=== PATIENT | male | born 1940 | race Two or more races ===

== ENCOUNTER 2024-03-12 19:51 | Inpatient (IN) | payer MEDICARE, BC, OTHER ==
[~2024-03-12] VITALS: Ht 175.3 cm; Wt 69.9 kg
[2024-03-12 20:38] LABS: BASOPHILS % (AUTO) 0.3 % (0.0-2.0); EOSINOPHILS # (AUTO) 0.1 K/uL (0.0-0.7); EOSINOPHILS % (AUTO) 1.1 % (0.0-6.0); HEMATOCRIT 37 % (39-51); HEMOGLOBIN 11.8 g/dL (13.5-17.5); LYMPHOCYTES # (AUTO) 0.7 K/uL (0.8-4.8); LYMPHOCYTES % (AUTO) 5.8 % (20.0-44.0); MEAN CORPUSCULAR HEMOGLOBIN 25 PG (26.0-33.0); MEAN CORPUSCULAR HGB CONC 32 g/dl (31.0-36.0); MEAN CORPUSCULAR VOLUME 79 fL (80-96); MONOCYTES # (AUTO) 1.1 K/uL (0.1-1.30); NEUTROPHILS # (AUTO) 10.3 K/uL (1.8-8.9); NEUTROPHILS % (AUTO) 83.8 % (43.0-81.0); PLATELET COUNT (AUTO) 232 K/uL (150-450); RED BLOOD CELL COUNT(AUTO) 4.63 MIL/uL (4.5-6.0); RED CELL DISTRIBUTION WIDTH 18.1 % (11.5-15.0); WHITE BLOOD COUNT (AUTO) 12.3 K/uL (4.3-11.0)
[2024-03-12 20:57] LABS: CALCIUM, SERUM 8.8 mg/dL (8.5-10.1); CARBON DIOXIDE 29 mmol/L (21-32); CHLORIDE 99 mmol/L (98-107); CREATININE 0.8 mg/dL (0.6-1.3); GLUCOSE 120 mg/dL (74-106); POTASSIUM 4.4 mmol/L (3.5-5.1); SODIUM SERUM 135 mmol/L (136-145); UREA NITROGEN, BLOOD 24 mg/dL (7-18)
[2024-03-12 20:59] LABS: SERUM AMMONIA 13 umol/L (11-32)
[2024-03-12 21:02] LABS: ALANINE AMINOTRANSFERASE 17 U/L (12-78); ALBUMIN 2.7 g/dL (3.4-5.0); ALKALINE PHOSPHATASE 159 U/L (46-116); ASPARTATE AMINOTRANSFERASE 18 U/L (15-37); BILIRUBIN,DIRECT 0.1 mg/dL (0.0-0.2); BILIRUBIN,TOTAL 0.4 mg/dL (0.2-1.0); TOTAL PROTEIN, SERUM 6.6 g/dL (6.4-8.2)
[2024-03-12 21:04] LABS: ALCOHOL, BLOOD < 3 mg/dL (0-10)
[2024-03-12 21:26] LABS: APPEARANCE,URINE CLEAR (CLEAR); BILIRUBIN,URINE NEGATIVE (NEGATIVE); BLOOD, URINE NEGATIVE Ery/uL (NEGATIVE); COLOR,URINE YELLOW (YELLOW); KETONES,URINE NEGATIVE (NEGATIVE); LEUKOCYTE ESTERASE ,URINE NEGATIVE (NEGATIVE); NITRITE, URINE NEGATIVE (NEGATIVE); PROTEIN,URINE NEGATIVE (NEGATIVE); UGLUCOSE NEGATIVE (NEGATIVE); UROBILINOGEN,URINE 0.2 EU/dL (0.2)
[2024-03-12 21:58] LABS: INR 1.64 (0.91-1.10); PARTIAL THROMBOPLASTIN TIME 40.7 SEC (24.3-34.3); PROTHROMBIN TIME 16.8 SECS (9.2-11.1)
[2024-03-12] MEDS ORDERED: LORAZEPAM INJ 2 MG/ML VIAL ONE (22:10)
[2024-03-12] MEDS: LORAZEPAM INJ 2 MG/ML VIAL IV PRN (22:17)
[2024-03-12] MEDS ORDERED: MAGNESIUM HYDROXIDE 30 ML UDC PO PRN (23:00)
[2024-03-12] MEDS ORDERED: ONDANSETRON HCL/PF 4 MG/2 ML VIAL IVP PRN (23:00)
[2024-03-12] MEDS ORDERED: MAG HYDROX/AL HYDROX/SIMETH 30 ML UDC PO PRN (23:00)
[2024-03-12] MEDS ORDERED: Z GUARD REMEDY 4 OZ OINT TP PRN (23:00)
[2024-03-12] MEDS ORDERED: ACETAMINOPHEN 325 MG TABLET PO PRN (23:00)
[2024-03-13 07:00] VITALS: BP 156/98; TEMP 98.3; O2SAT 99
[2024-03-13 07:15] LABS: BASOPHILS % (AUTO) 0.4 % (0.0-2.0); EOSINOPHILS # (AUTO) 0.4 K/uL (0.0-0.7); EOSINOPHILS % (AUTO) 3.2 % (0.0-6.0); HEMATOCRIT 33 % (39-51); HEMOGLOBIN 10.6 g/dL (13.5-17.5); LYMPHOCYTES % (AUTO) 8.4 % (20.0-44.0); MEAN CORPUSCULAR HEMOGLOBIN 25 PG (26.0-33.0); MEAN CORPUSCULAR HGB CONC 32 g/dl (31.0-36.0); MEAN CORPUSCULAR VOLUME 79 fL (80-96); MONOCYTES # (AUTO) 1.1 K/uL (0.1-1.30); NEUTROPHILS # (AUTO) 9.2 K/uL (1.8-8.9); PLATELET COUNT (AUTO) 172 K/uL (150-450); RED CELL DISTRIBUTION WIDTH 18.4 % (11.5-15.0); WHITE BLOOD COUNT (AUTO) 11.7 K/uL (4.3-11.0)
[2024-03-13 07:41] LABS: CALCIUM, SERUM 8.3 mg/dL (8.5-10.1); CARBON DIOXIDE 25 mmol/L (21-32); CHLORIDE 102 mmol/L (98-107); CREATININE 0.6 mg/dL (0.6-1.3); GLUCOSE 87 mg/dL (74-106); POTASSIUM 3.6 mmol/L (3.5-5.1); SODIUM SERUM 137 mmol/L (136-145); UREA NITROGEN, BLOOD 21 mg/dL (7-18)
[2024-03-13 08:00] VITALS: BP 159/49; TEMP 98.4; O2SAT 96
[2024-03-13] MEDS ORDERED: ATOR20TA PO (08:26)
[2024-03-13] MEDS ORDERED: TRAV2.5D7 EACHEYE (08:26)
[2024-03-13] MEDS ORDERED: NA P133E RC (08:26)
[2024-03-13] MEDS ORDERED: CHOL200059 PO (08:26)
[2024-03-13] MEDS ORDERED: LOSA25TA27 PO (08:26)
[2024-03-13] MEDS ORDERED: RIVA10TA PO (08:26)
[2024-03-13] MEDS ORDERED: ASCO-352 PO (08:26)
[2024-03-13] MEDS ORDERED: BISA10SU11 RC (08:26)
[2024-03-13] MEDS ORDERED: AMIN30LI25 PO (08:26)
[2024-03-13] MEDS ORDERED: CRAN300T PO (08:26)
[2024-03-13] MEDS ORDERED: ALBU18HF2 IH (08:26)
[2024-03-13] MEDS ORDERED: CARB200T8 PO (08:26)
[2024-03-13] MEDS ORDERED: SENN8.6T19 PO (08:26)
[2024-03-13] MEDS ORDERED: DORZ10DR10 EACHEYE (08:26)
[2024-03-13] MEDS ORDERED: LEVE500S9 PO (08:26)
[2024-03-13] MEDS ORDERED: LACO100T2 PO (08:26)
[2024-03-13] MEDS ORDERED: DOCU100C36 PO (08:26)
[2024-03-13] MEDS ORDERED: ACET325T53 PO (08:26)
[2024-03-13] MEDS ORDERED: BRIM5DRO11 EACHEYE (08:26)
[2024-03-13] MEDS ORDERED: MULT-1275 PO (08:26)
[2024-03-13] MEDS ORDERED: HYDR-3973 PO (08:26)
[2024-03-13] MEDS ORDERED: MAGN400O6 PO (08:26)
[2024-03-13] MEDS ORDERED: CALC-1276 PO (08:26)
[2024-03-13] MEDS: PANTOPRAZOLE 40 MG VIAL IV SCH (08:31)
[2024-03-13 11:30] VITALS: BP 168/81; TEMP 97.5; O2SAT 98
[2024-03-13 16:00] VITALS: BP_SYST 156; BP_SYST 157; BP_DIAS 73; BP_DIAS 76; TEMP 98.2; TEMP 98.4; O2SAT 100; O2SAT 94
[2024-03-13] MEDS ORDERED: HYDROCODONE/APAP 5/325MG TABLET PO PRN (17:00)
[2024-03-13] MEDS ORDERED: BISACODYL SUPP (10 MG) 10 MG/SUPP.RECT SUPP.RECT RC PRN (17:00)
[2024-03-13] MEDS ORDERED: NA PHOS,M-B/NA PHOS,DI-BA 1 EA ENEMA RC PRN (17:00)
[2024-03-13] MEDS ORDERED: ACETAMINOPHEN 325 MG TABLET PO PRN (17:00)
[2024-03-13] MEDS: DORZOLAMIDE OPTH 2% 10 ML BOTTLE EACHEYE SCH (17:00)
[2024-03-13] MEDS: BRIMONIDINE TARTRATE OPHT SOLN 5 ML BOTTLE EACHEYE SCH (17:02)
[2024-03-13] MEDS ORDERED: ALBUTEROL FS 2.5 MG/0.5 ML VIAL.NEB NEB PRN (17:30)
[2024-03-13] MEDS ORDERED: Medication Not On Formulary EA (Cranberry Extract (Cranberry) 450 MG) PO SCH (18:00)
[2024-03-13] MEDS: PROSOURCE / PROSTAT (PYXIS) 30 ML UDC PO SCH (18:00)
[2024-03-13] MEDS: CARBAMAZEPINE 200 MG TABLET PO SCH (18:07)
[2024-03-13] MEDS: ASCORBIC ACID 500 MG TABLET PO SCH (18:07)
[2024-03-13] MEDS: CALCIUM CARB 250MG /VITAMIN D 1 UDTAB PO SCH (18:08)
[2024-03-13] MEDS: RIVAROXABAN 10 MG TABLET PO SCH (18:09)
[2024-03-13 20:00] VITALS: BP 159/94; TEMP 98.4; O2SAT 96
[2024-03-13] MEDS: SENNOSIDES 8.6 MG TABLET PO SCH (21:05)
[2024-03-13] MEDS: LACOSAMIDE 50 MG TABLET PO SCH (21:05)
[2024-03-13] MEDS: LATANOPROST EYE DROP 0.005% 2.5 ML BOTTLE EACHEYE SCH (21:05)
[2024-03-13] MEDS: LEVETIRACETAM SOL (5 ML) 100 MG/ML UDC PO SCH (21:05)
[2024-03-13] MEDS: ATORVASTATIN 10 MG TABLET PO SCH (21:05)
[2024-03-14] VITALS (7 sets, daily range): BP systolic 116–177; BP diastolic 78–99; TEMP 97.7–98.4; O2SAT 95–99
[2024-03-14 06:50] LABS: BASOPHILS % (AUTO) 0.6 % (0.0-2.0); EOSINOPHILS # (AUTO) 0.5 K/uL (0.0-0.7); EOSINOPHILS % (AUTO) 7.8 % (0.0-6.0); HEMATOCRIT 35 % (39-51); HEMOGLOBIN 11.5 g/dL (13.5-17.5); LYMPHOCYTES # (AUTO) 0.9 K/uL (0.8-4.8); LYMPHOCYTES % (AUTO) 14.2 % (20.0-44.0); MEAN CORPUSCULAR HEMOGLOBIN 25 PG (26.0-33.0); MEAN CORPUSCULAR HGB CONC 32 g/dl (31.0-36.0); MEAN CORPUSCULAR VOLUME 79 fL (80-96); MONOCYTES # (AUTO) 0.8 K/uL (0.1-1.30); MONOCYTES % (AUTO) 11.7 % (2.0-12.0); NEUTROPHILS # (AUTO) 4.4 K/uL (1.8-8.9); NEUTROPHILS % (AUTO) 65.7 % (43.0-81.0); PLATELET COUNT (AUTO) 201 K/uL (150-450); RED BLOOD CELL COUNT(AUTO) 4.51 MIL/uL (4.5-6.0); RED CELL DISTRIBUTION WIDTH 18.2 % (11.5-15.0); WHITE BLOOD COUNT (AUTO) 6.7 K/uL (4.3-11.0)
[2024-03-14 07:07] LABS: CARBON DIOXIDE 31 mmol/L (21-32); CHLORIDE 100 mmol/L (98-107); CREATININE 0.6 mg/dL (0.6-1.3); GLUCOSE 78 mg/dL (74-106); POTASSIUM 3.8 mmol/L (3.5-5.1); SODIUM SERUM 135 mmol/L (136-145); UREA NITROGEN, BLOOD 13 mg/dL (7-18)
[2024-03-14] MEDS: DOCUSATE SODIUM 100 MG CAPSULE PO SCH (08:30)
[2024-03-14] MEDS: MULTIVITAMINS,THERAGRAN 1 UDTAB TABLET PO SCH (08:30)
[2024-03-14] MEDS: CHOLECALCIFEROL 1,000 UNIT TABLET (VIT D3) PO SCH (08:30)
[2024-03-14] MEDS: PANTOPRAZOLE 40 MG TABLET.DR PO SCH (08:31)
[2024-03-14] MEDS: LOSARTAN POTASSIUM 25 MG TABLET PO SCH (08:31)
[2024-03-14] MEDS: ZOLPIDEM TARTRATE 5 MG TABLET PO PRN (21:22)
[2024-03-15] VITALS: BP 160/94; TEMP 97.7; O2SAT 96
[2024-03-15 04:00] VITALS: BP 174/82; TEMP 98.4; O2SAT 95
[2024-03-15] MEDS: CLONIDINE HCL 0.1 MG TABLET PO PRN (04:26)
[2024-03-15 07:10] LABS: BASOPHILS % (AUTO) 0.6 % (0.0-2.0); EOSINOPHILS # (AUTO) 0.5 K/uL (0.0-0.7); EOSINOPHILS % (AUTO) 7.1 % (0.0-6.0); HEMATOCRIT 34 % (39-51); HEMOGLOBIN 10.7 g/dL (13.5-17.5); LYMPHOCYTES # (AUTO) 0.9 K/uL (0.8-4.8); LYMPHOCYTES % (AUTO) 12.5 % (20.0-44.0); MEAN CORPUSCULAR HEMOGLOBIN 25 PG (26.0-33.0); MEAN CORPUSCULAR HGB CONC 32 g/dl (31.0-36.0); MEAN CORPUSCULAR VOLUME 78 fL (80-96); MONOCYTES # (AUTO) 0.8 K/uL (0.1-1.30); MONOCYTES % (AUTO) 10.5 % (2.0-12.0); NEUTROPHILS % (AUTO) 69.3 % (43.0-81.0); PLATELET COUNT (AUTO) 196 K/uL (150-450); RED BLOOD CELL COUNT(AUTO) 4.29 MIL/uL (4.5-6.0); RED CELL DISTRIBUTION WIDTH 17.3 % (11.5-15.0); WHITE BLOOD COUNT (AUTO) 7.2 K/uL (4.3-11.0)
[2024-03-15 07:24] LABS: CALCIUM, SERUM 8.1 mg/dL (8.5-10.1); CARBON DIOXIDE 32 mmol/L (21-32); CHLORIDE 100 mmol/L (98-107); CREATININE 0.5 mg/dL (0.6-1.3); GLUCOSE 88 mg/dL (74-106); POTASSIUM 3.7 mmol/L (3.5-5.1); SODIUM SERUM 136 mmol/L (136-145); UREA NITROGEN, BLOOD 15 mg/dL (7-18)
[2024-03-15 08:00] VITALS: BP 176/74; TEMP 97.6; O2SAT 98
[2024-03-15] MEDS ORDERED: LISI-768 PO (09:35)
[2024-03-15 09:55] LABS: MAGNESIUM 1.9 mg/dL (1.8-2.4); PHOSPHORUS 3.3 mg/dL (2.5-4.9)
[2024-03-15 17:26] VITALS: BP 172/90; TEMP 98.9; O2SAT 97
[2024-03-15 18:00] VITALS: BP 166/90; TEMP 98; O2SAT 96
== END 2024-03-15 18:25 | disposition home or self-care (01) | DRG 640 ==
LOC: ER 19:55 → MED 21:37 → TELE 23:49
PROVIDERS: ATTEND Nurse Practitioner Acute Care
DX: R62.7 Adult failure to thrive (principal); E43 Unspecified severe protein-calorie malnutrition; G93.41 Metabolic encephalopathy; F03.93 Unspecified dementia, unspecified severity, with mood disturbance; F03.92 Unspecified dementia, unspecified severity, with psychotic disturbance; E86.0 Dehydration; I48.91 Unspecified atrial fibrillation; G40.909 Epilepsy, unspecified, not intractable, without status epilepticus; Z66 Do not resuscitate; F32.9 Major depressive disorder, single episode, unspecified; F29 Unspecified psychosis not due to a substance or known physiological condition; Z85.828 Personal history of other malignant neoplasm of skin; Z88.0 Allergy status to penicillin; Z88.8 Allergy status to other drugs, medicaments and biological substances; Z79.01 Long term (current) use of anticoagulants; Z79.51 Long term (current) use of inhaled steroids; Z79.899 Other long term (current) drug therapy; E78.5 Hyperlipidemia, unspecified; E88.09 Other disorders of plasma-protein metabolism, not elsewhere classified; D72.829 Elevated white blood cell count, unspecified; I71.20 Thoracic aortic aneurysm, without rupture, unspecified; Z91.81 History of falling; Z95.0 Presence of cardiac pacemaker; I10 Essential (primary) hypertension; D64.9 Anemia, unspecified; R79.89 Other specified abnormal findings of blood chemistry
CPT/HCPCS: 36415; 70450-TC; 71045-TC; 80048-TC; 80076-TC; 82140-TC; 83735-TC; 84100-TC; 84443-TC; 84484-TC; 85025-TC; 85730-TC; 87081-TC; 97110-TC; 97112-TC; 97116-TC; 97530-TC; G0378; G0480; J1953; J2060; J2470

== ENCOUNTER 2024-08-12 18:26 | Inpatient (IN) | payer MEDICARE, BC, OTHER ==
[~2024-08-12] VITALS: Ht 162.6 cm; Wt 66.2 kg
[~2024-08-12 18:26] MED LIST: ACET325T53 PO; ALBU18HF2 IH; AMIN30LI25 PO; ASCO-352 PO; ATOR20TA PO; BISA10SU11 RC; BRIM5DRO11 EACHEYE; CALC-1276 PO; CARB200T8 PO; CHOL200059 PO; CRAN300T PO; DOCU100C36 PO; DORZ10DR10 EACHEYE; HYDR-3973 PO; LACO100T2 PO; LEVE500S9 PO; LISI-768 PO; LOSA25TA27 PO; MAGN400O6 PO; MULT-1275 PO; NA P133E RC; RIVA10TA PO; SENN8.6T19 PO; TRAV2.5D7 EACHEYE
[2024-08-12 18:48] LABS: BASOPHILS % (AUTO) 0.2 % (0.0-2.0); HEMATOCRIT 31 % (39-51); LYMPHOCYTES # (AUTO) 0.4 K/uL (0.8-4.8); MEAN CORPUSCULAR HEMOGLOBIN 26 PG (26.0-33.0); MEAN CORPUSCULAR HGB CONC 32 g/dl (31.0-36.0); MEAN CORPUSCULAR VOLUME 79 fL (80-96); MONOCYTES # (AUTO) 0.9 K/uL (0.1-1.30); MONOCYTES % (AUTO) 6.2 % (2.0-12.0); NEUTROPHILS # (AUTO) 13.2 K/uL (1.8-8.9); NEUTROPHILS % (AUTO) 90.6 % (43.0-81.0); PLATELET COUNT (AUTO) 199 K/uL (150-450); RED BLOOD CELL COUNT(AUTO) 3.88 MIL/uL (4.5-6.0); WHITE BLOOD COUNT (AUTO) 14.5 K/uL (4.3-11.0)
[2024-08-12] MEDS: CEFEPIME 1 GM in IV D5W 50 ML IV ONE (18:55)
[2024-08-12] MEDS: IV NS 0.9% 1,000 ML BAG IV ONE (18:55)
[2024-08-12 18:56] LABS: APPEARANCE,URINE CLEAR (CLEAR); BILIRUBIN,URINE NEGATIVE (NEGATIVE); BLOOD, URINE 2+ Ery/uL (NEGATIVE); COLOR,URINE YELLOW (YELLOW); KETONES,URINE 1+ mg/dL (NEGATIVE); LEUKOCYTE ESTERASE ,URINE 1+ (NEGATIVE); NITRITE, URINE POSITIVE (NEGATIVE); PROTEIN,URINE 1+ mg/dl (NEGATIVE); UGLUCOSE NEGATIVE (NEGATIVE); UROBILINOGEN,URINE 0.2 EU/dL (0.2)
[2024-08-12 18:58] LABS: CALCIUM, SERUM 8.6 mg/dL (8.5-10.1); CARBON DIOXIDE 27 mmol/L (21-32); CHLORIDE 107 mmol/L (98-107); CREATININE 0.8 mg/dL (0.6-1.3); GLUCOSE 107 mg/dL (74-106); POTASSIUM 3.6 mmol/L (3.5-5.1); SODIUM SERUM 141 mmol/L (136-145); UREA NITROGEN, BLOOD 31 mg/dL (7-18)
[2024-08-12] MEDS: VANCOMYCIN 1 GM in IV D5W 250 ML IV ONE (19:00)
[2024-08-12 19:01] LABS: INR 1.43 (0.91-1.10); PARTIAL THROMBOPLASTIN TIME 38.5 SEC (24.3-34.3); PROTHROMBIN TIME 14.8 SECS (9.2-11.1)
[2024-08-12 19:04] LABS: ALANINE AMINOTRANSFERASE 20 U/L (12-78); ALBUMIN 2.6 g/dL (3.4-5.0); ALKALINE PHOSPHATASE 104 U/L (46-116); ASPARTATE AMINOTRANSFERASE 22 U/L (15-37); BILIRUBIN,DIRECT 0.3 mg/dL (0.0-0.2); BILIRUBIN,TOTAL 0.6 mg/dL (0.2-1.0); TOTAL PROTEIN, SERUM 6.9 g/dL (6.4-8.2)
[2024-08-12 19:05] LABS: LACTIC ACID 1.2 mmol/L (0.4-2.0)
[2024-08-12 19:17] LABS: ADD URINE CULTURE YES; BACTERIA,URINE Many /HPF (None Seen); RBC,URINE 21-50 /HPF (0-2)
[2024-08-12] MEDS ORDERED: ACETAMINOPHEN 650 MG/SUPP.RECT RC ONE (19:26)
[2024-08-12] MEDS: ACETAMINOPHEN 650 MG/SUPP.RECT RC ONE (19:30)
[2024-08-12] MEDS ORDERED: ONDANSETRON HCL/PF 4 MG/2 ML VIAL IVP PRN (21:00)
[2024-08-12] MEDS ORDERED: MAGNESIUM HYDROXIDE 30 ML UDC PO PRN ×2 (21:00)
[2024-08-12] MEDS ORDERED: Z GUARD REMEDY 4 OZ OINT TP PRN (21:00)
[2024-08-12] MEDS ORDERED: BISACODYL SUPP (10 MG) 10 MG/SUPP.RECT SUPP.RECT RC PRN (21:00)
[2024-08-12] MEDS ORDERED: MAG HYDROX/AL HYDROX/SIMETH 30 ML UDC PO PRN (21:00)
[2024-08-12] MEDS ORDERED: HYDROCODONE/APAP 5/325MG TABLET PO PRN (21:00)
[2024-08-12] MEDS ORDERED: NA PHOS,M-B/NA PHOS,DI-BA 1 EA ENEMA RC PRN (21:00)
[2024-08-12] MEDS ORDERED: Potassium Chloride 20 MEQ in IV D5/0.45 NACL 1,000 ML IV SCH (21:30)
[2024-08-12] MEDS ORDERED: SENNOSIDES 8.6 MG TABLET PO SCH (22:00)
[2024-08-12] MEDS ORDERED: Medication Not On Formulary EA (Atorvastatin Calcium (Lipitor) 20 MG) PO SCH (22:00)
[2024-08-13] VITALS: BP 142/92; TEMP 98.1; O2SAT 98
[2024-08-13] MEDS: ENOXAPARIN SODIUM 40 MG/0.4 ML DISP.SYRIN SQ SCH (00:02)
[2024-08-13] MEDS: IV D5/0.45 NACL 1,000 ML IV ONE (00:45)
[2024-08-13 04:00] VITALS: BP 138/87; TEMP 98.4; O2SAT 97
[2024-08-13 06:30] LABS: BASOPHILS % (AUTO) 0.2 % (0.0-2.0); HEMATOCRIT 29 % (39-51); HEMOGLOBIN 9.1 g/dL (13.5-17.5); LYMPHOCYTES # (AUTO) 1.1 K/uL (0.8-4.8); LYMPHOCYTES % (AUTO) 7.7 % (20.0-44.0); MEAN CORPUSCULAR HEMOGLOBIN 26 PG (26.0-33.0); MEAN CORPUSCULAR HGB CONC 32 g/dl (31.0-36.0); MEAN CORPUSCULAR VOLUME 80 fL (80-96); MONOCYTES # (AUTO) 1.4 K/uL (0.1-1.30); NEUTROPHILS # (AUTO) 11.6 K/uL (1.8-8.9); NEUTROPHILS % (AUTO) 82.1 % (43.0-81.0); PLATELET COUNT (AUTO) 162 K/uL (150-450); RED BLOOD CELL COUNT(AUTO) 3.57 MIL/uL (4.5-6.0); RED CELL DISTRIBUTION WIDTH 18.7 % (11.5-15.0); WHITE BLOOD COUNT (AUTO) 14.1 K/uL (4.3-11.0)
[2024-08-13 06:37] LABS: CREATININE 0.6 mg/dL (0.6-1.3); MAGNESIUM 1.8 mg/dL (1.8-2.4); POTASSIUM 3.3 mmol/L (3.5-5.1)
[2024-08-13 08:00] VITALS: BP 138/76; TEMP 98.4; O2SAT 97
[2024-08-13] MEDS: Potassium Chloride 20 MEQ in IV D5/0.45 NACL 1,000 ML IV SCH (08:32)
[2024-08-13] MEDS: VANCOMYCIN 750 MG in IV D5W 250 ML IV SCH (08:33)
[2024-08-13] MEDS: PANTOPRAZOLE 40 MG VIAL IV SCH (08:34)
[2024-08-13] MEDS ORDERED: Medication Not On Formulary EA (Multivitamin 1 TAB) PO SCH (09:00)
[2024-08-13] MEDS ORDERED: Medication Not On Formulary EA (Lacosamide (Vimpat) 100 MG) PO SCH (09:00)
[2024-08-13] MEDS ORDERED: LOSARTAN POTASSIUM 25 MG TABLET PO SCH (09:00)
[2024-08-13] MEDS ORDERED: LISINOPRIL (5MG) 5 MG TABLET PO SCH (09:00)
[2024-08-13] MEDS ORDERED: CARBAMAZEPINE 200 MG TABLET PO SCH (09:00)
[2024-08-13] MEDS ORDERED: CEFEPIME 1 GM in IV D5W 50 ML IV SCH (09:00)
[2024-08-13] MEDS ORDERED: LEVETIRACETAM PO SCH (09:00)
[2024-08-13] MEDS ORDERED: DORZOLAMIDE OPTH 2% 10 ML BOTTLE EACHEYE SCH (09:00)
[2024-08-13] MEDS ORDERED: DOCUSATE SODIUM 100 MG CAPSULE PO SCH (09:00)
[2024-08-13] MEDS ORDERED: SENN-291 PO (09:42)
[2024-08-13] MEDS ORDERED: CALC-261 PO (09:42)
[2024-08-13] MEDS ORDERED: ASCO500T10 PO (09:42)
[2024-08-13] MEDS ORDERED: ALBU6.7H9 IH (09:42)
[2024-08-13] MEDS ORDERED: DORZ10DR18 EACHEYE (09:42)
[2024-08-13] MEDS ORDERED: ACET650S11 RC (09:42)
[2024-08-13] MEDS ORDERED: ZOLP5TAB8 PO (09:42)
[2024-08-13] MEDS ORDERED: CARB200T8 PO (09:42)
[2024-08-13] MEDS ORDERED: HYDR-4303 PO (09:42)
[2024-08-13] MEDS ORDERED: AMIN30LI66 PO (09:42)
[2024-08-13] MEDS ORDERED: IPRA3AMP23 NEB (09:42)
[2024-08-13] MEDS ORDERED: CRAN425C6 PO (09:42)
[2024-08-13] MEDS ORDERED: OMEP40CA21 PO (09:42)
[2024-08-13] MEDS ORDERED: CLON0.1T PO (09:42)
[2024-08-13] MEDS ORDERED: LEVE750T10 PO (09:42)
[2024-08-13] MEDS ORDERED: MULT-213 PO (09:42)
[2024-08-13] MEDS: CEFEPIME 2 GM in IV D5W 100 ML IV SCH (09:50)
[2024-08-13 12:00] VITALS: BP 129/75; TEMP 98.6; O2SAT 97
[2024-08-13 16:00] VITALS: BP 134/79; TEMP 97.6; O2SAT 97
[2024-08-13] MEDS ORDERED: ASCORBIC ACID 500 MG TABLET PO SCH (18:00)
[2024-08-13] MEDS ORDERED: Medication Not On Formulary EA (Cranberry Extract (Cranberry) 450 MG) PO SCH (18:00)
[2024-08-13] MEDS ORDERED: RIVAROXABAN 10 MG TABLET PO SCH (18:00)
[2024-08-13] MEDS ORDERED: Medication Not On Formulary EA (Amino Acids/Protein Hydrolys (Prosource Liquid) 30 ML) PO SCH (18:00)
[2024-08-13] MEDS ORDERED: [UNRECOGNIZED DRUG - OTHER] PO SCH (18:00)
[2024-08-13] MEDS ORDERED: VITAMIN D3 PO SCH (18:00)
[2024-08-13] MEDS ORDERED: CALCIUM CARBONATE PO SCH (18:00)
[2024-08-13 20:23] VITALS: BP 148/82; TEMP 98.4; O2SAT 97
[2024-08-14 00:07] VITALS: BP 160/87; TEMP 98.3; O2SAT 96
[2024-08-14 04:00] VITALS: BP 139/86; TEMP 97.9; O2SAT 100
[2024-08-14 08:00] VITALS: BP 135/94; TEMP 98.4; O2SAT 100
[2024-08-14 08:07] LABS: BASOPHILS % (AUTO) 0.3 % (0.0-2.0); EOSINOPHILS # (AUTO) 0.1 K/uL (0.0-0.7); EOSINOPHILS % (AUTO) 0.8 % (0.0-6.0); HEMATOCRIT 26 % (39-51); HEMOGLOBIN 8.5 g/dL (13.5-17.5); LYMPHOCYTES # (AUTO) 0.6 K/uL (0.8-4.8); LYMPHOCYTES % (AUTO) 5.4 % (20.0-44.0); MEAN CORPUSCULAR HEMOGLOBIN 26 PG (26.0-33.0); MEAN CORPUSCULAR HGB CONC 33 g/dl (31.0-36.0); MEAN CORPUSCULAR VOLUME 79 fL (80-96); MONOCYTES # (AUTO) 0.9 K/uL (0.1-1.30); MONOCYTES % (AUTO) 7.6 % (2.0-12.0); NEUTROPHILS # (AUTO) 9.8 K/uL (1.8-8.9); NEUTROPHILS % (AUTO) 85.9 % (43.0-81.0); PLATELET COUNT (AUTO) 157 K/uL (150-450); RED BLOOD CELL COUNT(AUTO) 3.31 MIL/uL (4.5-6.0); RED CELL DISTRIBUTION WIDTH 18.9 % (11.5-15.0); WHITE BLOOD COUNT (AUTO) 11.4 K/uL (4.3-11.0)
[2024-08-14 08:55] LABS: ALBUMIN 1.9 g/dL (3.4-5.0); BILIRUBIN,TOTAL 0.5 mg/dL (0.2-1.0); CALCIUM, SERUM 7.8 mg/dL (8.5-10.1); CREATININE 0.5 mg/dL (0.6-1.3); MAGNESIUM 1.8 mg/dL (1.8-2.4); PHOSPHORUS 1.7 mg/dL (2.5-4.9); POTASSIUM 3.1 mmol/L (3.5-5.1); TOTAL PROTEIN, SERUM 5.7 g/dL (6.4-8.2)
[2024-08-14 12:00] VITALS: BP 138/89; TEMP 98.2; O2SAT 100
[2024-08-14 16:00] VITALS: BP 142/74; TEMP 98.4; O2SAT 95
[2024-08-14] MEDS: K PHOS NEUTRAL 250 MG TABLET PO ONE (16:16)
[2024-08-14 20:00] VITALS: BP 131/73; TEMP 98.1; O2SAT 99
[2024-08-14] MEDS: VANCOMYCIN 750 MG in IV D5W 250 ML IV SCH (20:47)
[2024-08-15] VITALS: BP 147/94; TEMP 98.4; O2SAT 97
[2024-08-15 04:00] VITALS: BP 148/94; TEMP 98.2; O2SAT 97
[2024-08-15 07:26] LABS: BASOPHILS % (AUTO) 0.2 % (0.0-2.0); EOSINOPHILS # (AUTO) 0.2 K/uL (0.0-0.7); EOSINOPHILS % (AUTO) 2.5 % (0.0-6.0); HEMATOCRIT 25 % (39-51); HEMOGLOBIN 8.3 g/dL (13.5-17.5); LYMPHOCYTES # (AUTO) 0.8 K/uL (0.8-4.8); LYMPHOCYTES % (AUTO) 10.4 % (20.0-44.0); MEAN CORPUSCULAR HEMOGLOBIN 26 PG (26.0-33.0); MEAN CORPUSCULAR HGB CONC 33 g/dl (31.0-36.0); MEAN CORPUSCULAR VOLUME 78 fL (80-96); MONOCYTES # (AUTO) 0.6 K/uL (0.1-1.30); MONOCYTES % (AUTO) 7.4 % (2.0-12.0); NEUTROPHILS % (AUTO) 79.5 % (43.0-81.0); PLATELET COUNT (AUTO) 156 K/uL (150-450); RED BLOOD CELL COUNT(AUTO) 3.22 MIL/uL (4.5-6.0); RED CELL DISTRIBUTION WIDTH 18.6 % (11.5-15.0); WHITE BLOOD COUNT (AUTO) 7.5 K/uL (4.3-11.0)
[2024-08-15 07:46] LABS: ALBUMIN 1.7 g/dL (3.4-5.0); BILIRUBIN,TOTAL 0.5 mg/dL (0.2-1.0); CALCIUM, SERUM 7.5 mg/dL (8.5-10.1); CREATININE 0.5 mg/dL (0.6-1.3); MAGNESIUM 1.9 mg/dL (1.8-2.4); PHOSPHORUS 1.8 mg/dL (2.5-4.9); TOTAL PROTEIN, SERUM 5.4 g/dL (6.4-8.2)
[2024-08-15 08:00] VITALS: BP 148/100; TEMP 97.8; O2SAT 97
[2024-08-15] MEDS: ACETAMINOPHEN 325 MG TABLET PO PRN (09:21)
[2024-08-15] MEDS ORDERED: CEFE2FRO IV (11:17)
[2024-08-15 12:00] VITALS: BP 158/87; TEMP 97.9; O2SAT 98
[2024-08-15] MEDS: POTASSIUM CHLORIDE 20 MEQ POWDER PACKET PO ONE (14:08)
[2024-08-15 16:00] VITALS: BP 146/90; TEMP 97.6; O2SAT 98
[2024-08-15] MEDS: K PHOS NEUTRAL 250 MG TABLET PO ONE (16:11)
[2024-08-15 20:31] VITALS: BP 148/101; TEMP 98.9; O2SAT 100
[2024-08-15] MEDS: MUPIROCIN OINT 2% 22 GM TUBE NS SCH (21:28)
[2024-08-16 04:12] VITALS: BP 126/79; TEMP 98.6; O2SAT 100
[2024-08-16 08:00] VITALS: BP 142/80; TEMP 98; O2SAT 100
[2024-08-16] MEDS ORDERED: MAGNESIUM HYDROXIDE 30 ML UDC PO PRN (08:00)
[2024-08-16] MEDS ORDERED: NA PHOS,M-B/NA PHOS,DI-BA 1 EA ENEMA RC PRN (08:00)
[2024-08-16] MEDS ORDERED: HYDROCODONE/APAP 5/325MG TABLET PO PRN (08:00)
[2024-08-16] MEDS ORDERED: ACETAMINOPHEN 325 MG TABLET PO PRN (08:00)
[2024-08-16] MEDS ORDERED: ACETAMINOPHEN 650 MG/SUPP.RECT RC PRN (08:00)
[2024-08-16] MEDS ORDERED: BISACODYL SUPP (10 MG) 10 MG/SUPP.RECT SUPP.RECT RC PRN (08:00)
[2024-08-16] MEDS ORDERED: CLONIDINE HCL 0.1 MG TABLET PO PRN (08:00)
[2024-08-16] MEDS: LEVETIRACETAM (250 MG) 250 MG TABLET PO SCH (09:46)
[2024-08-16] MEDS: LOSARTAN POTASSIUM 25 MG TABLET PO SCH (09:47)
[2024-08-16] MEDS: LACOSAMIDE 50 MG TABLET PO SCH (09:47)
[2024-08-16 16:00] VITALS: BP 142/70; TEMP 98.1; O2SAT 100
[2024-08-16 16:48] LABS: CALCIUM, SERUM 7.7 mg/dL (8.5-10.1); CREATININE 0.5 mg/dL (0.6-1.3); POTASSIUM 3.3 mmol/L (3.5-5.1)
[2024-08-16] MEDS: RIVAROXABAN 10 MG TABLET PO SCH (17:48)
[2024-08-16] MEDS: CARBAMAZEPINE 200 MG TABLET PO SCH (17:49)
[2024-08-16] MEDS ORDERED: SENNOSIDES/DOCUSATE SODIUM 1 TAB TABLET PO SCH (22:00)
[2024-08-16] MEDS ORDERED: ZOLPIDEM TARTRATE 5 MG TABLET PO SCH (22:00)
[2024-08-17] MEDS ORDERED: Medication Not On Formulary EA (Omeprazole 40 MG) PO SCH (07:30)
== END 2024-08-16 18:59 | DRG 871 ==
LOC: ER 18:33 → TELE1 21:16 → MEDSG1 08-15 10:15
PROVIDERS: ATTEND Internal Medicine
DX: A40.8 Other streptococcal sepsis (principal); G93.41 Metabolic encephalopathy; I21.A1 Myocardial infarction type 2; L89.624 Pressure ulcer of left heel, stage 4; L89.614 Pressure ulcer of right heel, stage 4; N17.0 Acute kidney failure with tubular necrosis; J15.69 Pneumonia due to other Gram-negative bacteria; E44.0 Moderate protein-calorie malnutrition; N39.0 Urinary tract infection, site not specified; E88.09 Other disorders of plasma-protein metabolism, not elsewhere classified; E78.5 Hyperlipidemia, unspecified; E86.0 Dehydration; F29 Unspecified psychosis not due to a substance or known physiological condition; I10 Essential (primary) hypertension; I48.91 Unspecified atrial fibrillation; Z87.891 Personal history of nicotine dependence; Z88.0 Allergy status to penicillin; Z20.822 Contact with and (suspected) exposure to COVID-19; G40.909 Epilepsy, unspecified, not intractable, without status epilepticus; I73.9 Peripheral vascular disease, unspecified; Z85.828 Personal history of other malignant neoplasm of skin; F01.50 Vascular dementia, unspecified severity, without behavioral disturbance, psychotic disturbance, mood disturbance, and anxiety; Z68.25 Body mass index [BMI] 25.0-25.9, adult; Z95.0 Presence of cardiac pacemaker; B96.20 Unspecified Escherichia coli [E. coli] as the cause of diseases classified elsewhere
CPT/HCPCS: 36415; 71045-TC; 80048-TC; 80053-TC; 80076-TC; 80202-TC; 81001; 82962-TC; 83605-TC; 83735-TC; 84100-TC; 84484-TC; 85025-TC; 85730-TC; 87040-TC; 87081-TC; 87086-TC; 87186-TC; 92526; 92611-TC; 93307-TC; A4223; G0378; J0692; J1650; J2470; J3370; J3371; J3480; J3490; J7030; J7050; J7060

== ENCOUNTER 2024-10-31 20:36 | Inpatient (IN) | payer MEDICARE, BC, OTHER ==
[~2024-10-31] VITALS: Ht 175.3 cm; Wt 58.2 kg
[~2024-10-31 20:36] MED LIST changes: +ACET650S11 RC; -ALBU18HF2 IH; +ALBU6.7H9 IH; -AMIN30LI25 PO; +AMIN30LI66 PO; -ASCO-352 PO; +ASCO500T10 PO; -CALC-1276 PO; +CALC-261 PO; +CEFE2FRO IV; +CLON0.1T PO; -CRAN300T PO; +CRAN425C6 PO; -DOCU100C36 PO; -DORZ10DR10 EACHEYE; +DORZ10DR18 EACHEYE; -HYDR-3973 PO; +HYDR-4303 PO; +IPRA3AMP23 NEB; -LEVE500S9 PO; +LEVE750T10 PO; -LISI-768 PO; -MULT-1275 PO; +MULT-213 PO; +OMEP40CA21 PO; +SENN-291 PO; -SENN8.6T19 PO; +ZOLP5TAB8 PO
[2024-10-31] MEDS: IV NS 0.9% 1,000 ML BAG IV ONE ×2 (21:30→22:00)
[2024-10-31 21:52] LABS: BASOPHILS % (AUTO) 0.3 % (0.0-2.0); EOSINOPHILS # (AUTO) 0.2 K/uL (0.0-0.7); EOSINOPHILS % (AUTO) 2.3 % (0.0-6.0); HEMATOCRIT 31 % (39-51); LYMPHOCYTES # (AUTO) 0.8 K/uL (0.8-4.8); LYMPHOCYTES % (AUTO) 10.2 % (20.0-44.0); MEAN CORPUSCULAR HEMOGLOBIN 28 PG (26.0-33.0); MEAN CORPUSCULAR HGB CONC 32 g/dl (31.0-36.0); MEAN CORPUSCULAR VOLUME 86 fL (80-96); MONOCYTES # (AUTO) 0.5 K/uL (0.1-1.30); MONOCYTES % (AUTO) 6.1 % (2.0-12.0); NEUTROPHILS % (AUTO) 81.1 % (43.0-81.0); PLATELET COUNT (AUTO) 230 K/uL (150-450); RED BLOOD CELL COUNT(AUTO) 3.64 MIL/uL (4.5-6.0); RED CELL DISTRIBUTION WIDTH 19.2 % (11.5-15.0); WHITE BLOOD COUNT (AUTO) 7.4 K/uL (4.3-11.0)
[2024-10-31 21:56] LABS: APPEARANCE,URINE CLEAR (CLEAR); BILIRUBIN,URINE NEGATIVE (NEGATIVE); BLOOD, URINE 1+ Ery/uL (NEGATIVE); COLOR,URINE YELLOW (YELLOW); KETONES,URINE NEGATIVE (NEGATIVE); LEUKOCYTE ESTERASE ,URINE 3+ (NEGATIVE); NITRITE, URINE POSITIVE (NEGATIVE); PROTEIN,URINE 2+ mg/dl (NEGATIVE); UGLUCOSE 1+ mg/dL (NEGATIVE); UROBILINOGEN,URINE 0.2 EU/dL (0.2)
[2024-10-31 21:57] LABS: ADD URINE CULTURE YES; BACTERIA,URINE 1+ /HPF (None Seen); SQUAMOUS EPITHELIAL CELL,UR Rare /HPF (None Seen); URINE AMORPHOUS PHOSPHATES Moderate /HPF (None Seen); WBC,URINE 21-50 /HPF (0-3)
[2024-10-31] MEDS: LEVOFLOXACIN 750 MG /D5W 150ML PIGGYBACK IV ONE (22:00)
[2024-10-31 22:03] LABS: CALCIUM, SERUM 8.7 mg/dL (8.5-10.1); CARBON DIOXIDE 28 mmol/L (21-32); CHLORIDE 109 mmol/L (98-107); GLUCOSE 131 mg/dL (74-106); POTASSIUM 4.1 mmol/L (3.5-5.1); SODIUM SERUM 142 mmol/L (136-145); UREA NITROGEN, BLOOD 55 mg/dL (7-18)
[2024-10-31] MEDS ORDERED: LEVOFLOXACIN 750 MG /D5W 150ML 150 ML IV ONE (22:08)
[2024-10-31 22:09] LABS: ALANINE AMINOTRANSFERASE 18 U/L (12-78); ALBUMIN 2.4 g/dL (3.4-5.0); ALKALINE PHOSPHATASE 111 U/L (46-116); ASPARTATE AMINOTRANSFERASE 24 U/L (15-37); BILIRUBIN,DIRECT 0.1 mg/dL (0.0-0.2); BILIRUBIN,TOTAL 0.3 mg/dL (0.2-1.0); LIPASE 39 U/L (16-77); TOTAL PROTEIN, SERUM 6.8 g/dL (6.4-8.2)
[2024-10-31 22:12] LABS: INR 1.61 (0.91-1.10); PARTIAL THROMBOPLASTIN TIME 40.2 SEC (24.3-34.3); PROTHROMBIN TIME 16.5 SECS (9.2-11.1)
[2024-10-31] MEDS ORDERED: ONDANSETRON HCL/PF 4 MG/2 ML VIAL IVP PRN (22:30)
[2024-10-31] MEDS ORDERED: ALBUTEROL FS 2.5 MG/3 ML VIAL.NEB NEB PRN (22:30)
[2024-10-31] MEDS ORDERED: MAG HYDROX/AL HYDROX/SIMETH 30 ML UDC PO PRN (22:30)
[2024-10-31] MEDS ORDERED: Z GUARD REMEDY 4 OZ OINT TP PRN (22:30)
[2024-10-31] MEDS ORDERED: IPRATROPIUM NEB FS 0.5 MG/2.5 ML AMPUL.NEB NEB PRN (22:30)
[2024-10-31] MEDS ORDERED: MAGNESIUM HYDROXIDE 30 ML UDC PO PRN (22:30)
[2024-10-31] MEDS ORDERED: ENOXAPARIN SODIUM 30 MG/0.3 ML DISP.SYRIN ONE (22:48)
[2024-10-31] MEDS: ENOXAPARIN SODIUM 30 MG/0.3 ML DISP.SYRIN SQ SCH (22:52)
[2024-11-01] MEDS: IV NS 0.9% 1,000 ML IV PRN (00:32)
[2024-11-01] MEDS ORDERED: CEFEPIME 1 GM VIAL ONE (01:06)
[2024-11-01] MEDS: CEFEPIME 2 GM in IV D5W 100 ML IV ONE (01:53)
[2024-11-01 04:00] VITALS: BP 149/76; TEMP 98.4; O2SAT 98
[2024-11-01 07:31] LABS: BASOPHILS % (AUTO) 0.3 % (0.0-2.0); EOSINOPHILS % (AUTO) 0.5 % (0.0-6.0); HEMATOCRIT 31 % (39-51); LYMPHOCYTES # (AUTO) 1.5 K/uL (0.8-4.8); MEAN CORPUSCULAR HEMOGLOBIN 28 PG (26.0-33.0); MEAN CORPUSCULAR HGB CONC 33 g/dl (31.0-36.0); MEAN CORPUSCULAR VOLUME 87 fL (80-96); MONOCYTES # (AUTO) 0.5 K/uL (0.1-1.30); MONOCYTES % (AUTO) 6.2 % (2.0-12.0); NEUTROPHILS # (AUTO) 5.2 K/uL (1.8-8.9); PLATELET COUNT (AUTO) 223 K/uL (150-450); RED BLOOD CELL COUNT(AUTO) 3.52 MIL/uL (4.5-6.0); RED CELL DISTRIBUTION WIDTH 19.3 % (11.5-15.0); WHITE BLOOD COUNT (AUTO) 7.2 K/uL (4.3-11.0)
[2024-11-01 07:57] LABS: CALCIUM, SERUM 7.7 mg/dL (8.5-10.1); CREATININE 0.8 mg/dL (0.6-1.3); MAGNESIUM 1.9 mg/dL (1.8-2.4); PHOSPHORUS 2.5 mg/dL (2.5-4.9); POTASSIUM 4.3 mmol/L (3.5-5.1)
[2024-11-01 08:00] VITALS: BP 150/87; TEMP 98.6; O2SAT 99
[2024-11-01] MEDS: PANTOPRAZOLE 40 MG VIAL IV SCH (08:27)
[2024-11-01 08:41] LABS: THYROID STIMULATING HORMONE 5.58 uIU/mL (0.358-3.74)
[2024-11-01] MEDS ORDERED: ERGO50CA PO (08:47)
[2024-11-01] MEDS ORDERED: POVI1MED TP (08:47)
[2024-11-01] MEDS ORDERED: DILT60TA3 PO (08:47)
[2024-11-01] MEDS ORDERED: COLL30OI TP (08:47)
[2024-11-01] MEDS ORDERED: ZINC1CAP2 PO (08:47)
[2024-11-01] MEDS ORDERED: ACET325T53 PO (08:47)
[2024-11-01] MEDS: THERAHONEY GEL 1.5 OZ TUBE TP SCH (11:31)
[2024-11-01] MEDS: CEFEPIME 2 GM in IV D5W 100 ML IV SCH (12:11)
[2024-11-01 16:00] VITALS: BP 169/85; TEMP 98.2; O2SAT 96
[2024-11-01] MEDS: LOSARTAN POTASSIUM 25 MG TABLET PO SCH (18:46)
[2024-11-01] MEDS: DILTIAZEM HCL 30 MG TABLET PO SCH (20:00)
[2024-11-01] MEDS: ENOXAPARIN SODIUM 40 MG/0.4 ML DISP.SYRIN SQ SCH (22:28)
[2024-11-02] VITALS: BP_SYST 155; BP_SYST 162; BP_DIAS 80; BP_DIAS 83; TEMP 98.2; TEMP 98.4; O2SAT 100; O2SAT 99
[2024-11-02 08:00] VITALS: BP 136/83; TEMP 97.5; O2SAT 96
[2024-11-02 10:12] LABS: BASOPHILS % (AUTO) 0.8 % (0.0-2.0); EOSINOPHILS # (AUTO) 0.1 K/uL (0.0-0.7); EOSINOPHILS % (AUTO) 2.2 % (0.0-6.0); HEMATOCRIT 32 % (39-51); HEMOGLOBIN 10.5 g/dL (13.5-17.5); LYMPHOCYTES # (AUTO) 1.1 K/uL (0.8-4.8); LYMPHOCYTES % (AUTO) 17.1 % (20.0-44.0); MEAN CORPUSCULAR HEMOGLOBIN 28 PG (26.0-33.0); MEAN CORPUSCULAR HGB CONC 33 g/dl (31.0-36.0); MEAN CORPUSCULAR VOLUME 85 fL (80-96); MONOCYTES # (AUTO) 0.5 K/uL (0.1-1.30); MONOCYTES % (AUTO) 7.9 % (2.0-12.0); NEUTROPHILS # (AUTO) 4.5 K/uL (1.8-8.9); PLATELET COUNT (AUTO) 230 K/uL (150-450); RED BLOOD CELL COUNT(AUTO) 3.75 MIL/uL (4.5-6.0); RED CELL DISTRIBUTION WIDTH 18.6 % (11.5-15.0); WHITE BLOOD COUNT (AUTO) 6.3 K/uL (4.3-11.0)
[2024-11-02] MEDS: PANTOPRAZOLE 40 MG TABLET.DR PO SCH (10:34)
[2024-11-02 16:00] VITALS: BP 137/80; TEMP 98.2; O2SAT 97
[2024-11-02 20:00] VITALS: BP 153/76; TEMP 98.6; O2SAT 95
[2024-11-02] MEDS ORDERED: LEVOFLOXACIN 750 MG /D5W 150ML 750 MG in PREMIX 1 EA IV SCH (22:00)
[2024-11-03 01:37] LABS: ALBUMIN 2.2 g/dL (3.4-5.0); BILIRUBIN,TOTAL 0.4 mg/dL (0.2-1.0); CALCIUM, SERUM 8.2 mg/dL (8.5-10.1); CREATININE 0.7 mg/dL (0.6-1.3); MAGNESIUM 1.9 mg/dL (1.8-2.4); PHOSPHORUS 2.2 mg/dL (2.5-4.9); POTASSIUM 3.3 mmol/L (3.5-5.1); TOTAL PROTEIN, SERUM 6.6 g/dL (6.4-8.2)
[2024-11-03 04:00] VITALS: BP 147/84; TEMP 97.7; O2SAT 100
[2024-11-03 04:06] LABS: PTH, INTACT 17 pg/mL (15-65)
[2024-11-03 08:00] VITALS: BP 135/67; TEMP 97.7; O2SAT 96
[2024-11-03 08:00] LABS: BILIRUBIN,TOTAL 0.6 mg/dL (0.2-1.0); CALCIUM, SERUM 7.9 mg/dL (8.5-10.1); CREATININE 0.6 mg/dL (0.6-1.3); MAGNESIUM 1.7 mg/dL (1.8-2.4); PHOSPHORUS 1.9 mg/dL (2.5-4.9); TOTAL PROTEIN, SERUM 6.3 g/dL (6.4-8.2)
[2024-11-03 08:02] LABS: BASOPHILS % (AUTO) 0.5 % (0.0-2.0); EOSINOPHILS # (AUTO) 0.2 K/uL (0.0-0.7); EOSINOPHILS % (AUTO) 2.5 % (0.0-6.0); HEMATOCRIT 31 % (39-51); HEMOGLOBIN 10.4 g/dL (13.5-17.5); LYMPHOCYTES % (AUTO) 14.3 % (20.0-44.0); MEAN CORPUSCULAR HEMOGLOBIN 28 PG (26.0-33.0); MEAN CORPUSCULAR HGB CONC 33 g/dl (31.0-36.0); MEAN CORPUSCULAR VOLUME 85 fL (80-96); MONOCYTES # (AUTO) 0.7 K/uL (0.1-1.30); MONOCYTES % (AUTO) 10.1 % (2.0-12.0); NEUTROPHILS # (AUTO) 5.3 K/uL (1.8-8.9); NEUTROPHILS % (AUTO) 72.6 % (43.0-81.0); PLATELET COUNT (AUTO) 231 K/uL (150-450); RED BLOOD CELL COUNT(AUTO) 3.68 MIL/uL (4.5-6.0); RED CELL DISTRIBUTION WIDTH 18.5 % (11.5-15.0); WHITE BLOOD COUNT (AUTO) 7.3 K/uL (4.3-11.0)
[2024-11-03] MEDS: MAGNESIUM OXIDE 400 MG TABLET PO ONE (09:18)
[2024-11-03 10:18] LABS: POTASSIUM 2.8 mmol/L (3.5-5.1)
[2024-11-03] MEDS: POTASSIUM CL. PREMIX PERIPHER. 50 ML IV SCH (12:59)
[2024-11-03] MEDS: POTASSIUM CHLORIDE 20 MEQ TAB.PRT.SR PO ONE (13:06)
[2024-11-03 16:00] VITALS: BP 126/74; TEMP 97.9; O2SAT 96
[2024-11-03] MEDS: K PHOS NEUTRAL 250 MG TABLET PO ONE (16:12)
[2024-11-03 20:00] VITALS: BP 147/83; TEMP 98.4; O2SAT 100
[2024-11-04 04:00] VITALS: BP 143/77; TEMP 98.8; O2SAT 99
[2024-11-04 08:00] VITALS: BP 147/86; TEMP 98.2; O2SAT 97
[2024-11-04 15:49] VITALS: BP 119/74; TEMP 97.5; O2SAT 98
[2024-11-04 16:00] VITALS: BP 119/74; TEMP 97.5; O2SAT 98
[2024-11-04] MEDS: ARGININE/GLUTAMINE/CALCIUM BMB 1 EACH POWD.PACK PO SCH (17:59)
[2024-11-04 20:00] VITALS: BP 140/91; TEMP 97.5; O2SAT 98
[2024-11-05 04:00] VITALS: BP 155/88; TEMP 97.8; O2SAT 97
[2024-11-05 08:00] VITALS: BP 121/73; TEMP 97.4; O2SAT 98
[2024-11-05] MEDS: ENSURE ENLIVE 237 ML LIQUID (VANILLA) PO SCH (08:09)
[2024-11-05 16:00] VITALS: BP 140/69; TEMP 97.7; O2SAT 98
[2024-11-05 20:00] VITALS: BP 124/63; TEMP 98.2; O2SAT 93
[2024-11-06 04:00] VITALS: BP 131/71; TEMP 98; O2SAT 96
[2024-11-06 06:59] LABS: ALBUMIN 2.1 g/dL (3.4-5.0); BILIRUBIN,TOTAL 0.5 mg/dL (0.2-1.0); CALCIUM, SERUM 8.3 mg/dL (8.5-10.1); CREATININE 0.5 mg/dL (0.6-1.3); TOTAL PROTEIN, SERUM 6.2 g/dL (6.4-8.2)
[2024-11-06 07:03] LABS: BASOPHILS % (AUTO) 0.6 % (0.0-2.0); EOSINOPHILS # (AUTO) 0.4 K/uL (0.0-0.7); EOSINOPHILS % (AUTO) 4.8 % (0.0-6.0); HEMATOCRIT 31 % (39-51); HEMOGLOBIN 10.6 g/dL (13.5-17.5); LYMPHOCYTES # (AUTO) 1.3 K/uL (0.8-4.8); LYMPHOCYTES % (AUTO) 17.3 % (20.0-44.0); MEAN CORPUSCULAR HEMOGLOBIN 29 PG (26.0-33.0); MEAN CORPUSCULAR HGB CONC 34 g/dl (31.0-36.0); MEAN CORPUSCULAR VOLUME 84 fL (80-96); MONOCYTES # (AUTO) 0.8 K/uL (0.1-1.30); MONOCYTES % (AUTO) 11.2 % (2.0-12.0); NEUTROPHILS % (AUTO) 66.1 % (43.0-81.0); PLATELET COUNT (AUTO) 221 K/uL (150-450); RED BLOOD CELL COUNT(AUTO) 3.71 MIL/uL (4.5-6.0); RED CELL DISTRIBUTION WIDTH 17.3 % (11.5-15.0); WHITE BLOOD COUNT (AUTO) 7.6 K/uL (4.3-11.0)
[2024-11-06 07:36] LABS: POTASSIUM 2.7 mmol/L (3.5-5.1)
[2024-11-06 08:14] VITALS: BP 122/73; TEMP 97.4; O2SAT 98
[2024-11-06] MEDS: POTASSIUM CL. PREMIX PERIPHER. 50 ML IV SCH (11:04)
[2024-11-06] MEDS: K PHOS NEUTRAL 250 MG TABLET PO ONE (15:29)
[2024-11-06 16:15] VITALS: BP 124/63; TEMP 98.2; O2SAT 93
[2024-11-06] MEDS: CARBAMAZEPINE 200 MG TABLET PO SCH (17:17)
[2024-11-06] MEDS: RIVAROXABAN 10 MG TABLET PO SCH (17:17)
[2024-11-06] MEDS: BRIMONIDINE TARTRATE OPHT SOLN 5 ML BOTTLE EACHEYE SCH (17:18)
[2024-11-06] MEDS: DILTIAZEM HCL 30 MG TABLET PO SCH (17:18)
[2024-11-06] MEDS: DORZOLAMIDE OPTH 2% 10 ML BOTTLE EACHEYE SCH (17:19)
[2024-11-06 20:00] VITALS: BP 135/82; TEMP 99; O2SAT 98
[2024-11-06] MEDS: LACOSAMIDE 50 MG TABLET PO SCH (20:51)
[2024-11-06] MEDS: LEVETIRACETAM (250 MG) 250 MG TABLET PO SCH (20:52)
[2024-11-06] MEDS: ATORVASTATIN 10 MG TABLET PO SCH (22:52)
[2024-11-06] MEDS: LATANOPROST EYE DROP 0.005% 2.5 ML BOTTLE EACHEYE SCH (22:53)
[2024-11-07 04:00] VITALS: BP 130/64; TEMP 98.8; O2SAT 98
[2024-11-07 08:00] VITALS: BP 140/81; TEMP 98.2; O2SAT 97
[2024-11-07] MEDS: ZINC SULFATE 220 MG CAPSULE PO SCH (09:00)
[2024-11-07] MEDS ORDERED: COLLAGENASE 30 GM TUBE TP SCH (09:00)
[2024-11-07 09:48] LABS: CALCIUM, SERUM 8.3 mg/dL (8.5-10.1); CREATININE 0.6 mg/dL (0.6-1.3); POTASSIUM 3.2 mmol/L (3.5-5.1)
[2024-11-07 09:51] LABS: INR 1.3 (0.91-1.10); PARTIAL THROMBOPLASTIN TIME 33.3 SEC (24.3-34.3); PROTHROMBIN TIME 13.5 SECS (9.2-11.1)
[2024-11-07] MEDS: POTASSIUM CHLORIDE 20 MEQ TAB.PRT.SR PO ONE (11:12)
[2024-11-07 16:00] VITALS: BP 121/87; TEMP 98.1; O2SAT 93
[2024-11-07 20:00] VITALS: BP 130/65; TEMP 98.2; O2SAT 93
[2024-11-08 04:00] VITALS: BP 142/72; TEMP 97.9; O2SAT 95
[2024-11-08 07:47] LABS: BASOPHILS # (AUTO) 0.1 K/uL (0.0-0.2); BASOPHILS % (AUTO) 1.1 % (0.0-2.0); EOSINOPHILS # (AUTO) 0.5 K/uL (0.0-0.7); EOSINOPHILS % (AUTO) 7.7 % (0.0-6.0); HEMATOCRIT 30 % (39-51); HEMOGLOBIN 10.2 g/dL (13.5-17.5); LYMPHOCYTES # (AUTO) 1.1 K/uL (0.8-4.8); LYMPHOCYTES % (AUTO) 16.1 % (20.0-44.0); MEAN CORPUSCULAR HEMOGLOBIN 29 PG (26.0-33.0); MEAN CORPUSCULAR HGB CONC 34 g/dl (31.0-36.0); MEAN CORPUSCULAR VOLUME 85 fL (80-96); MONOCYTES # (AUTO) 0.7 K/uL (0.1-1.30); MONOCYTES % (AUTO) 10.3 % (2.0-12.0); NEUTROPHILS # (AUTO) 4.3 K/uL (1.8-8.9); NEUTROPHILS % (AUTO) 64.8 % (43.0-81.0); PLATELET COUNT (AUTO) 224 K/uL (150-450); RED BLOOD CELL COUNT(AUTO) 3.57 MIL/uL (4.5-6.0); RED CELL DISTRIBUTION WIDTH 17.7 % (11.5-15.0); WHITE BLOOD COUNT (AUTO) 6.6 K/uL (4.3-11.0)
[2024-11-08 08:00] VITALS: BP 142/72; TEMP 97.9; O2SAT 95
[2024-11-08 08:19] LABS: CALCIUM, SERUM 8.4 mg/dL (8.5-10.1); CREATININE 0.5 mg/dL (0.6-1.3); MAGNESIUM 1.9 mg/dL (1.8-2.4); POTASSIUM 3.7 mmol/L (3.5-5.1)
[2024-11-08 16:00] VITALS: BP 169/94; TEMP 97.5; O2SAT 95
[2024-11-08] MEDS: K PHOS NEUTRAL 250 MG TABLET PO ONE (16:23)
[2024-11-08 20:04] VITALS: BP 130/62; TEMP 98.4; O2SAT 97
[2024-11-09 04:00] VITALS: BP 147/73; TEMP 97.5; O2SAT 98
[2024-11-09 07:23] LABS: CALCIUM, SERUM 8.8 mg/dL (8.5-10.1); CREATININE 0.7 mg/dL (0.6-1.3); PHOSPHORUS 2.9 mg/dL (2.5-4.9)
[2024-11-09 08:07] VITALS: BP 133/87; TEMP 98.2; O2SAT 99
[2024-11-09 08:28] LABS: PROTEIN, BODY FLUID 2.6 G/DL
[2024-11-09 11:23] LABS: POTASSIUM 3.6 mmol/L (3.5-5.1)
[2024-11-09] MEDS: ACETAMINOPHEN 325 MG TABLET PO PRN (14:51)
[2024-11-09 16:18] VITALS: BP 133/87; TEMP 98.2; O2SAT 99
[2024-11-09] MEDS: RIVAROXABAN 10 MG TABLET PO SCH (17:00)
[2024-11-09 17:07] LABS: *SPE A/G RATIO 0.6 (0.7-1.7); *SPE ALBUMIN 2.2 g/dL (2.9-4.4); *SPE ALPHA-1-GLOBULIN 0.2 g/dL (0.0-0.4); *SPE ALPHA-2-GLOBULIN 0.7 g/dL (0.4-1.0); *SPE BETA GLOBULIN 0.9 g/dL (0.7-1.3); *SPE GLOBULIN, TOTAL 3.7 g/dL (2.2-3.9); *SPE M-SPIKE Not Observed g/dL (Not Observed); *SPE PROTEIN TOTAL 5.9 g/dL (6.0-8.5); *SPEGAMMA GLOBULIN 1.9 g/dL (0.4-1.8)
[2024-11-09 17:37] VITALS: BP 115/61
[2024-11-10 03:43] LABS: APPEARANCE,SPUN,BODY FLUID CLEAR (CLEAR); TOTAL VOLUME,BODY FLUID 1550 mL
[2024-11-10 03:44] LABS: WBC, BODY FLUID 63 /cu. mm. (0-200)
[2024-11-10 03:49] LABS: MACROPHAGES, BODY FLUID 0; MONOCYTES,BODY FLUID 21 %
== END 2024-11-09 19:07 | DRG 981 ==
LOC: ER 20:37 → MEDSG1 22:39
PROVIDERS: ADMIT Nurse Practitioner Family; ATTEND Nurse Practitioner Acute Care
PROC: 0KBP0ZZ Excision of Left Hip Muscle, Open Approach (ICD-10-PCS; principal; 2024-11-02)
PROC: 0KBP0ZZ Excision of Left Hip Muscle, Open Approach (ICD-10-PCS; 2024-11-07)
PROC: 0W993ZZ Drainage of Right Pleural Cavity, Percutaneous Approach (ICD-10-PCS; 2024-11-08)
DX: J15.9 Unspecified bacterial pneumonia (principal); G92.8 Other toxic encephalopathy; L89.323 Pressure ulcer of left buttock, stage 3; L89.624 Pressure ulcer of left heel, stage 4; L89.614 Pressure ulcer of right heel, stage 4; D68.59 Other primary thrombophilia; E44.0 Moderate protein-calorie malnutrition; I48.21 Permanent atrial fibrillation; N17.9 Acute kidney failure, unspecified; N39.0 Urinary tract infection, site not specified; J90 Pleural effusion, not elsewhere classified; S21.111A Laceration without foreign body of right front wall of thorax without penetration into thoracic cavity, initial encounter; R62.7 Adult failure to thrive; Z66 Do not resuscitate; E86.0 Dehydration; D63.8 Anemia in other chronic diseases classified elsewhere; E78.5 Hyperlipidemia, unspecified; E87.6 Hypokalemia; E88.09 Other disorders of plasma-protein metabolism, not elsewhere classified; I10 Essential (primary) hypertension; I25.10 Atherosclerotic heart disease of native coronary artery without angina pectoris; E83.9 Disorder of mineral metabolism, unspecified; Z88.0 Allergy status to penicillin; Z95.0 Presence of cardiac pacemaker; Z85.828 Personal history of other malignant neoplasm of skin; F03.90 Unspecified dementia, unspecified severity, without behavioral disturbance, psychotic disturbance, mood disturbance, and anxiety; G40.909 Epilepsy, unspecified, not intractable, without status epilepticus; S51.012A Laceration without foreign body of left elbow, initial encounter; X58.XXXA Exposure to other specified factors, initial encounter; Y93.9 Activity, unspecified; Y92.129 Unspecified place in nursing home as the place of occurrence of the external cause; L89.156 Pressure-induced deep tissue damage of sacral region; M24.574 Contracture, right foot; M24.575 Contracture, left foot; B96.89 Other specified bacterial agents as the cause of diseases classified elsewhere; Z79.899 Other long term (current) drug therapy; E11.51 Type 2 diabetes mellitus with diabetic peripheral angiopathy without gangrene
CPT/HCPCS: 36415; 71045-TC; 80048-TC; 80053-TC; 80076-TC; 81001; 82550-TC; 83605-TC; 83690-TC; 83735-TC; 83970; 84100-TC; 84155; 84165; 84443-TC; 84484-TC; 85025-TC; 85730-TC; 87040-TC; 87102-TC; 89051-TC; A4223; A6253; A6403; G0378; J0692; J1650; J1956; J2470; J3480; J7030; J7040; J7050; J7060